=== PATIENT | male | born 1985 | race African-American/Black ===

== ENCOUNTER 2018-11-28 09:03 | Day surgery (SDC) | payer OTHER ==
[~2018-11-28] VITALS: Ht 175.3 cm; Wt 95.3 kg
[~2018-11-28 09:03] MED LIST: CLINDAMYCIN 600MG PREMIX 50 ML IV PRN; CLINDAMYCIN 900MG PREMIX 50 ML IV PRN; DIPH25CA58 PO; FLUO20CA16 PO; HYDROmorphone 2 MG/ML VIAL IV PRN; IV RINGERS,LACTATED 1000ML 1,000 ML IV SCH; LEVE500T56 PO; LIDOCAINE 1% PF 2 ML VIAL. ID PRN; LORA10TA68 PO; MORPHINE SULFATE 4 MG/ML VIAL. IV PRN; OMEP20CA5 PO; ONDANSETRON PF 4 MG/2 ML VIAL. IV PRN; OXYC1TAB15 PO; PROCHLORPERAZINE 10 MG/2 ML VIAL. IV PRN; SULF1TAB24 PO; fentaNYL PF VIAL 100 MCG/2 ML VIAL IV PRN
[2018-11-28] MEDS ORDERED: MIDAZOLAM HCL/PF 2 MG/2 ML VIAL. ONE (10:03)
[2018-11-28] MEDS ORDERED: LIDOCAINE 2% PF 2ML VIAL. ONE (10:03)
[2018-11-28] MEDS ORDERED: BUPIVACAINE MPF 0.25% 30 ML VIAL. ONE (10:04)
[2018-11-28] MEDS ORDERED: EPINEPHrine 1 MG/ML VIAL ONE (10:04)
[2018-11-28] MEDS ORDERED: BUPIVACAINE MPF 0.5% 30 ML VIAL. ONE (10:04)
[2018-11-28] MEDS ORDERED: FAMOTIDINE 20 MG/2 ML VIAL ONE (10:39)
[2018-11-28] MEDS ORDERED: ROCURONIUM 50 MG/5 ML VIAL. ONE (10:39)
[2018-11-28] MEDS ORDERED: fentaNYL PF VIAL 100 MCG/2 ML VIAL ONE (10:39)
[2018-11-28] MEDS ORDERED: PROPOFOL 20 ML IV ONE (10:39)
[2018-11-28] MEDS ORDERED: LIDOCAINE 2% PF Vial for OR 5 ML VIAL. ONE (10:39)
[2018-11-28] MEDS ORDERED: ONDANSETRON PF 4 MG/2 ML VIAL. ONE (10:39)
[2018-11-28] MEDS ORDERED: DEXAMETHASONE SOD PHOS 20 MG/5 ML VIAL. ONE (10:39)
[2018-11-28] MEDS ORDERED: EPINEPHrine VIAL 30 MG/30 ML VIAL ONE (11:43)
[2018-11-28] MEDS ORDERED: BUPIVAC MPF-EPI 0.5%-1:200000 30 ML VIAL. ONE (11:43)
[2018-11-28] MEDS ORDERED: GLYCOPYRROLATE 1 MG/5 ML VIAL. ONE (13:00)
[2018-11-28] MEDS ORDERED: SEVOFLURANE 61 TO 120 MINUTES. IH ONE (13:04)
--- NOTE | 2018-11-28 13:18 | DISCH ---
DISCHARGE INSTRUCTIONS Condition on Discharge Condition on Discharge: Stable Activity After Discharge Activity Instructions for Disc: Activity as tolerated, Other, see below Diet after Discharge Diet after Discharge: Regular Wound Incision Care Wound/Incision Care: Ice to area for comfort, Change dressing (remove dressing in 3 days may then shower) Community/Resources/Services Services at Discharge: PT EVALUATE & TREAT (May start active range of motion strengthening as tolerated, call outpatient [facility] to set up appointment) Contacting the DR. after DC Call your doctor for: Concerns you may have Treatment/Equipment after DC Adaptive Equipment Issued: None (sling for comfort only until arm wakes up, no other protection needed) CRUZ DIAZ MD Nov 28, 2018 13:17
[2018-11-28] MEDS ORDERED: OXYC1TAB19 PO (13:19)
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
[2018-11-28] MEDS ORDERED: oxyCODONE/APAP 7.5/325 1 TAB TABLET PO ONE (13:45)
[2018-11-28 14:21] VITALS: BP 133/88
== END 2018-11-28 14:21 | disposition home or self-care (01) ==
LOC: SURG 09:03
PROVIDERS: ATTEND Orthopaedic Surgery
DX: S43.431A Superior glenoid labrum lesion of right shoulder, initial encounter (principal); Z88.0 Allergy status to penicillin; F41.9 Anxiety disorder, unspecified; Z98.890 Other specified postprocedural states; Z79.899 Other long term (current) drug therapy; W19.XXXA Unspecified fall, initial encounter; Y93.89 Activity, other specified; Y92.89 Other specified places as the place of occurrence of the external cause; Y99.8 Other external cause status
CPT/HCPCS: 29823; A7015; J0171; J1100; J2001; J2250; J2405; J2704; J3010; J3490; J7120

== ENCOUNTER 2021-07-23 05:37 | Emergency (ER) | payer OTHER ==
[~2021-07-23] VITALS: Ht 172.7 cm; Wt 104.0 kg
[~2021-07-23 05:37] MED LIST changes: -CLINDAMYCIN 600MG PREMIX 50 ML IV PRN; -CLINDAMYCIN 900MG PREMIX 50 ML IV PRN; -HYDROmorphone 2 MG/ML VIAL IV PRN; -IV RINGERS,LACTATED 1000ML 1,000 ML IV SCH; -LIDOCAINE 1% PF 2 ML VIAL. ID PRN; -MORPHINE SULFATE 4 MG/ML VIAL. IV PRN; -ONDANSETRON PF 4 MG/2 ML VIAL. IV PRN; +OXYC1TAB19 PO; -PROCHLORPERAZINE 10 MG/2 ML VIAL. IV PRN; -fentaNYL PF VIAL 100 MCG/2 ML VIAL IV PRN
[2021-07-23 05:43] VITALS: BP 131/85
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
--- NOTE | 2021-07-23 07:20 | RAD ---
XR SHOULDER_LEFT 2+ VIEWS dated 07/23/2021 6:29 AM. History: Reason: pain / Spl. Instructions: / History: Comparison: None. Findings: No fracture or dislocation is seen. Mild arthritic changes are present at the AC joint. There is no a pparent destructive process. Impression: 1. 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 Electronically signed by: Colt Stewart Jr., MD (07/23/2021 7:18 AM) [id number]
== END 2021-07-23 07:02 | disposition home or self-care (01) ==
LOC: ER 05:37
DX: M25.512 Pain in left shoulder (principal); Z88.0 Allergy status to penicillin
CPT/HCPCS: 73030; 99283